=== PATIENT | male | born 1960 | race Caucasian/White ===

== ENCOUNTER → 2016-12-18 | Day surgery (SDC) | payer BC ==
[2016-12-14 12:37] VITALS: Ht 195.6 cm; Wt 171.4 kg
[~2016-12-18] VITALS: Ht 195.6 cm; Wt 171.4 kg
[~2016-12-18] MED LIST: BUPR-79 PO; CARV6.25 PO; FURO20TA PO; LIDOCAINE HCL 2% 2 ML VIAL (20MG/ML) ONE; LOSA50TA6 PO; MELO15TA4 PO; METF500T PO; MIDAZOLAM HCL 1 MG/ML 2ML VIAL ONE; PANT40TA PO; PROPOFOL IV EMULSION 10 MG/ML 20 ML VIAL IV ONE; SODIUM CHLORIDE 0.9% 500ML 500 ML IV ONE; TRAZ1TAB16 PO; TRIA1SPR4 NAE
--- NOTE | 2016-12-18 09:02 | Endo History and Physical ---
History & Physical Date of Service: Dec 18, 2016. Chief Complaint: GERD,abdominal pain Referring Physician: Dr. Quan Conti History of Present Illness abd pain Past Surgical History Hx Cardiac Surgery: No Hx Internal Defibrillator: No Hx Pacemaker: No Hx Abdominal Surgery: No Hx of Implantable Prosthesis: No Hx Post-Op Nausea and Vomiting: Yes ("I THINK I WAS HITTING THE PAIN BUTTON TOO FAST") Hx Cancer Surgery: No Hx Thoracic Surgery: No Hx Orthopedic: Yes (RT TKA, LT KNEE SCOPE) Hx Urinary Tract Surgery: No Family History None Social History Smoking Status: Never Smoker Hx Substance Use: No Hx Alcohol Use: Yes (OCCASIONAL) Allergies Coded Allergies: No Known Allergies (Verified , 12/14/16) Current Medications Reported Home Medications Medications Dose Route/Sig Max Daily Dose Days Date Category Nasacort Allergy 24Hr (Triamcinolone Acetonide (Nasal) 55 Mcg/Act Spr 2 [place] SHYAM DAILY 12/14/16 Reported Mobic (Meloxicam) 15 Mg Tab 0.5 Tab PO QAM 01/27/16 Reported Cozaar (Losartan Potassium) 50 Mg Tab 50 Mg PO QAM 01/27/16 Reported Desyrel (Trazodone Hcl) 50 Mg Tab 50 Mg PO HS 01/27/16 Reported Wellbutrin Sr (Bupropion HCl) 150 Mg Ertab 150 Mg PO BID 01/27/16 Reported Protonix (Pantoprazole Sodium) 40 Mg Tab 40 Mg PO QAM 01/27/16 Reported Lasix (Furosemide) 20 Mg Tab 20 Mg PO QAM 12/19/11 Reported Glucophage (Metformin Hcl) 500 Mg Tab 500 Mg PO BID 11/30/11 Reported Coreg (Carvedilol) 6.25 Mg Tab 0.5 Tab PO BID 11/30/11 Reported Vital Signs Weight (Kilograms): 171.36 Height (Feet): 6 Height (Inches): 5 Date Time Temp Pulse Resp B/P (MAP) Pulse Ox O2 Delivery O2 Flow Rate FiO2 12/18/16 08:16 36 76 20 163/91 (115) 95 Room Air Physical Exam General Appearance: WD/WN, no apparent distress Assessment and Plan EGD and colonoscopy today
--- NOTE | 2016-12-18 09:42 | GI REPORT ---
Procedure Date: 12/18/2016 8:20 AM Procedure: Upper GI endoscopy Indications: Epigastric abdominal pain, Generalized abdominal pain Medicines: Propofol per Anesthesia Complications: No immediate complications. Estimated blood loss: Minimal. Estimated Blood Loss: Estimated blood loss: none. Procedure: Pre-Anesthesia Assessment: - Prior to the procedure, a History and Physical was performed, and patient medications, allergies and sensitivities were reviewed. The patient's tolerance of previous anesthesia was reviewed. - The risks and benefits of the procedure and the sedation options and risks were discussed with the patient. All questions were answered and informed consent was obtained. - Patient identification and proposed procedure were verified prior to the procedure by the physician and the nurse. The procedure was verified in the pre-procedure area in the procedure room. - Mental Status Examination: alert and oriented. Airway Examination: normal oropharyngeal airway and neck mobility. Respiratory Examination: clear to auscultation. CV Examination: normal. Abdominal Examination: bowel sounds present, abdomen soft and non-tender, no masses or organomegaly noted. - ASA Grade Assessment: III - A patient with severe systemic disease. After obtaining informed consent, the endoscope was passed under direct vision. Throughout the procedure, the patient's blood pressure, pulse, and oxygen saturations were monitored continuously. The scope was introduced through the mouth, and advanced to the second part of duodenum. The upper GI endoscopy was accomplished without difficulty. The patient tolerated the procedure well. Findings: The Z-line was irregular and was found 39 cm from the incisors. Biopsies were taken with a cold forceps for histology. Verification of patient identification for the specimen was done by the physician and nurse using the patient's name and date. Estimated blood loss was minimal. The stomach was normal. The examined duodenum was normal. Impression: - Z-line irregular, 39 cm from the incisors. Biopsied. - Normal stomach. - Normal examined duodenum. Recommendation: - Await pathology results. - Perform a colonoscopy today. Adela Garcia D.O. Adela Garcia DO 12/18/2016 9:42:30 AM This report has been signed electronically. Note Initiated On: 12/18/2016 8:20 AM I attest to the content of the Intraoperative Record and orders documented therein, exceptions below
--- NOTE | 2016-12-18 09:50 | GI REPORT ---
Procedure Date: 12/18/2016 8:19 AM Procedure: Colonoscopy Indications: Screening for colorectal malignant neoplasm, Incidental - Generalized abdominal pain Medicines: Propofol per Anesthesia Complications: No immediate complications. Estimated blood loss: None. Estimated Blood Loss: Estimated blood loss: none. Procedure: Pre-Anesthesia Assessment: - Prior to the procedure, a History and Physical was performed, and patient medications, allergies and sensitivities were reviewed. The patient's tolerance of previous anesthesia was reviewed. - The risks and benefits of the procedure and the sedation options and risks were discussed with the patient. All questions were answered and informed consent was obtained. - Patient identification and proposed procedure were verified prior to the procedure by the physician and the nurse. The procedure was verified in the pre-procedure area in the procedure room. - Mental Status Examination: alert and oriented. Airway Examination: normal oropharyngeal airway and neck mobility. Respiratory Examination: clear to auscultation. CV Examination: normal. Abdominal Examination: bowel sounds present, abdomen soft and non-tender, no masses or organomegaly noted. - ASA Grade Assessment: III - A patient with severe systemic disease. After I obtained informed consent, the scope was passed under direct vision. Throughout the procedure, the patient's blood pressure, pulse, and oxygen saturations were monitored continuously. The scope was introduced through the anus and advanced to the terminal ileum. The colonoscopy was performed without difficulty. The patient tolerated the procedure well. The quality of the bowel preparation was good. Findings: The perianal and digital rectal examinations were normal. Pertinent negatives include normal sphincter tone and no palpable rectal lesions. The terminal ileum appeared normal. Multiple small and large-mouthed diverticula were found in the sigmoid colon. A 10 mm polyp was found in the sigmoid colon. The polyp was pedunculated. The polyp was removed with a hot snare. Resection and retrieval were complete. Verification of patient identification for the specimen was done by the physician and nurse using the patient's name and date. Estimated blood loss: none. The retroflexed view of the distal rectum and anal verge was normal and showed no anal or rectal abnormalities. Impression: - The examined portion of the ileum was normal. - Diverticulosis in the sigmoid colon. - One 10 mm polyp in the sigmoid colon, removed with a hot snare. Resected and retrieved. - The distal rectum and anal verge are normal on retroflexion view. Recommendation: - Await pathology results. - No aspirin, ibuprofen, naproxen, or other non-steroidal anti-inflammatory drugs for 7 days after polyp removal. - Repeat colonoscopy for surveillance based on pathology results. - Return to referring physician as previously scheduled. - Discharge patient to home. Adela Garcia D.O. Adela Garcia, 12/18/2016 9:49:37 AM This report has been signed electronically. Note Initiated On: 12/18/2016 8:19 AM I attest to the content of the Intraoperative Record and orders documented therein, exceptions below
--- NOTE | 2016-12-18 10:02 | Anesthesiology Progress Note ---
Anesthesia Post Op Note Date & Time Dec 18, 2016 at 10:01 Vital Signs Pain Intensity: 0 Vital Signs Past 12 Hours Date Time Temp Pulse Resp B/P (MAP) Pulse Ox O2 Delivery O2 Flow Rate FiO2 12/18/16 09:53 74 20 134/98 (110) 93 Room Air 12/18/16 09:38 86 20 158/92 (114) 93 Room Air 12/18/16 08:16 36 76 20 163/91 (115) 95 Room Air Notes Mental Status: alert / awake / arousable, participated in evaluation Pt Amnestic to Procedure: Yes Nausea / Vomiting: adequately controlled Pain: adequately controlled Airway Patency, RR, SpO2: stable & adequate BP & HR: stable & adequate Hydration State: stable & adequate Anesthetic Complications: no major complications apparent
--- NOTE | 2016-12-18 10:06 | Discharge Instructions ---
Endoscopy Patient Instructions Date / Procedure(s) Performed Dec 18, 2016. Colonoscopy, EGD Allergy Information Coded Allergies: No Known Allergies (Verified , 12/14/16) Discharge Date / Findings Dec 18, 2016. GE junction changes suspicious for Barretts Large colon polyp Medication Instructions Stopped Medication(s): stopped Mobic 12/15,Glucophage 12/16 Restart Stopped Medication(s): OK to resume the Mobic on Sunday Resume glucophage today as above Provider Instructions Activity Restrictions - No exercising or heavy lifting for 24 hours. - Do not drink alcohol the day of the procedure. - Do not drive a car or operate machinery until the day after the procedure. - Do not make any important decisions or sign important papers in 24 hours after the procedure. Following Day: - Return to full activity which may include returning to work/school. Diet Start your diet with liquids and light foods (jello, soup, juice, toast). Then eat your usual diet if not nauseated. Treatment For Common After Affects For mild abdominal pain, bloating, or excessive gas: - Rest - Eat lightly - Lie on right side Follow-Up Information Follow-up with Dr. Quan Conti as scheduled Anesthesia Information What You Should Know You have had a procedure that required some medicine to reduce anxiety and discomfort. This treatment is called moderate sedation. After receiving the treatment, you may be sleepy, but you will be able to breathe on your own. The effects of the treatment may last for several hours. Follow these instructions along with Activity/Diet recommendations noted above: * Do NOT do anything where dizziness or clumsiness would be dangerous. * Rest quietly at home today, then you can be up and about tomorrow. * Have a responsible person stay with you the rest of today. * You may have had an I.V. today. If so, you may take the dressing off later today. Recommendations Call your doctor if: * Trouble breathing * Continuous vomiting for more than 24 hours * Temperature above 101 degrees * Severe abdominal pain or bloating * Pain not relieved by pain medicine ordered * There is increased drainage or redness from any incision * A large amount of rectal bleeding greater than 2-3 tablespoons. (If you had a polyp/s removed or have hemorrhoids, a small amount of blood - from the rectum is to be expected.) * You have any unanswered questions or concerns. IN THE EVENT OF A SERIOUS EMERGENCY, GO TO THE NEAREST EMERGENCY ROOM Your discharge instructions were prepared by provider Adela Garcia. Patient Instructions Signature Page Moy Milton Patient (or Guardian) Signature/Date: I have read and understand the instructions given to me by my caregivers. Caregiver/RN/Doctor Signature/Date: The above-named patient and/or guardian has received patient instructions on this date. + Original Patient Signature Page (only) stays with chart. Please make copy for patient.
[2016-12-18 10:08] VITALS: BP 142/97; PULSE 74; O2SAT 95
== END | disposition home or self-care (01) ==
LOC: C.GI 07:49
PROVIDERS: ATTEND Internal Medicine
DX: K29.70 Gastritis, unspecified, without bleeding (principal); Z12.11 Encounter for screening for malignant neoplasm of colon; D12.5 Benign neoplasm of sigmoid colon; K57.30 Diverticulosis of large intestine without perforation or abscess without bleeding; Z79.84 Long term (current) use of oral hypoglycemic drugs; Z79.899 Other long term (current) drug therapy